=== PATIENT | female | born 1950 | race Two or more races ===

== ENCOUNTER 2019-07-07 12:00 | Inpatient (IN) | payer OTHER ==
[~2019-07-07] VITALS: Ht 175.3 cm; Wt 94.8 kg
[2019-07-07] MEDS ORDERED: SODIUM CHLORIDE 0.9% 500 ML IV ONE (12:24)
[2019-07-07] MEDS ORDERED: LEVOFLOXACIN 500MG PREMIX 100 ML IV ONE (12:30)
[2019-07-07 14:57] LABS: CLARITY URINE CLOUDY (CLEAR); COLOR URINE YELLOW (YELLOW); KETONES URINE NEGATIVE (NEGATIVE); LEUKOCYTE ESTERASE URINE 3+ (NEGATIVE); NITRITE URINE NEGATIVE (NEGATIVE); OCCULT BLOOD URINE 2+ (NEGATIVE); PROTEIN URINE TRACE (NEGATIVE); SPECIFIC GRAVITY URINE 1.013 (1.005-1.030); UROBILINOGEN URINE 0.2 E.U./dL (0.2-1.0)
[2019-07-07 14:59] LABS: CHLORIDE 105 mEq/L (98-107)
[2019-07-07 15:04] LABS: BASOPHILS % 0.3 % (0.0-2.0); D-DIMER 1.46 mg/L FEU (<0.50); EOSINOPHILS % 1.4 % (0.0-5.0); HEMATOCRIT. 40.2 % (36.0-48.0); HEMOGLOBIN. 13.3 g/dL (12.0-16.0); LYMPHOCYTES % 21.4 % (20.0-50.0); MEAN CORPUSCULAR HEMOGLOBIN 27.6 pg (28.0-32.0); MEAN CORPUSCULAR VOLUME 83.7 fL (81.0-99.0); MEAN PLATELET VOLUME 8.8 fl (7.4-10.4); MONOCYTES % 6.2 % (2.0-8.0); NEUTROPHILS % 70.7 % (40.0-76.0); PLATELET 279 x1000/uL (130-400); PROTHROMBIN TIME 10.6 sec (9.6-11.0); RED CELL DISTRIBUTION WIDTH 15.4 % (11.6-14.6)
[2019-07-07 15:06] LABS: C REACTIVE PROTEIN QUANT 7.7 mg/L (0.0-3.0)
[2019-07-07 15:08] LABS: CREATINE KINASE 60 IU/L (26-192)
[2019-07-07] MEDS ORDERED: CLONIDINE 0.1MG TABLET PO PRN (17:00)
[2019-07-07] MEDS ORDERED: ACETAMINOPHEN 325MG TABLET PO PRN ×2 (17:00)
[2019-07-07] MEDS ORDERED: ONDANSETRON HCL 4MG/2ML INJ IV PRN (17:00)
[2019-07-07] MEDS ORDERED: MAGNESIUM/ALUMINUM HYDROXIDE/SIMETHICONE 30ML UDC PO PRN (17:00)
[2019-07-07] MEDS ORDERED: DIPHENHYDRAMINE 50MG/ML VIAL IV PRN (17:00)
[2019-07-07] MEDS ORDERED: DEXTROSE 50% WATER 50ML SYRINGE IV PRN (17:00)
[2019-07-07] MEDS ORDERED: GUAIFENESIN 200MG/10ML SUGAR FREE UDC PO PRN (17:00)
[2019-07-07] MEDS: SODIUM CHLORIDE 0.9% 1,000 ML IV SCH (17:05)
[2019-07-07] MEDS: BLOOD SUGAR DIAGNOSTIC STRIP TEST SCH (17:05)
[2019-07-07] MEDS ORDERED: ENOXAPARIN 40MG/0.4ML SYR SUBCUT NR (17:15)
[2019-07-07] MEDS: INSULIN LISPRO 100 UNITS/ML SUBCUT SCH (17:52)
[2019-07-07 23:30] VITALS: BP 154/43
[2019-07-08] VITALS: BP 154/43
[2019-07-08] MEDS ORDERED: ROSU5TAB PO (01:11)
[2019-07-08 04:00] VITALS: BP 120/62
[2019-07-08] MEDS: BLOOD SUGAR DIAGNOSTIC STRIP TEST SCH ×4 (07:49→21:55)
[2019-07-08 08:00] VITALS: BP 120/58
[2019-07-08] MEDS: INSULIN LISPRO 100 UNITS/ML SUBCUT SCH ×4 (08:10→21:00)
[2019-07-08] MEDS: ENOXAPARIN 40MG/0.4ML SYR SUBCUT SCH (08:32)
[2019-07-08 10:22] LABS: BASOPHILS % 0.5 % (0.0-2.0); HEMOGLOBIN. 12.4 g/dL (12.0-16.0); LYMPHOCYTES % 27.6 % (20.0-50.0); MEAN CORPUSCULAR HEMOGLOBIN 27.8 pg (28.0-32.0); MEAN CORPUSCULAR VOLUME 83.2 fL (81.0-99.0); MEAN PLATELET VOLUME 8.9 fl (7.4-10.4); MONOCYTES % 7.1 % (2.0-8.0); NEUTROPHILS % 63.8 % (40.0-76.0); PLATELET 251 x1000/uL (130-400); RED BLOOD CELL COUNT 4.45 mill/uL (4.2-5.4); RED CELL DISTRIBUTION WIDTH 14.9 % (11.6-14.6)
[2019-07-08] MEDS: SODIUM CHLORIDE 0.9% 1,000 ML IV SCH (10:30)
[2019-07-08 10:40] LABS: CHLORIDE 110 mEq/L (98-107)
[2019-07-08 10:49] LABS: PHOSPHORUS 2.7 mg/dL (2.5-4.9)
[2019-07-08 12:00] VITALS: BP 118/66
[2019-07-08 16:00] VITALS: BP 118/71
[2019-07-08] MEDS ORDERED: LEVOFLOXACIN 500MG PREMIX 100 ML IV SCH ×2 (17:00→17:30)
[2019-07-08 20:00] VITALS: BP 131/71
[2019-07-09] VITALS: BP 140/77
[2019-07-09 04:32] VITALS: BP 138/81
[2019-07-09] MEDS: BLOOD SUGAR DIAGNOSTIC STRIP TEST SCH ×2 (06:56→12:59)
[2019-07-09 08:00] VITALS: BP 139/77
[2019-07-09] MEDS: INSULIN LISPRO 100 UNITS/ML SUBCUT SCH ×2 (08:10→12:50)
[2019-07-09] MEDS: ENOXAPARIN 40MG/0.4ML SYR SUBCUT SCH (08:19)
[2019-07-09 13:23] VITALS: BP 148/80
[2019-07-10] MEDS ORDERED: LEVOFLOXACIN 500MG TABLET PO SCH (11:00)
== END 2019-07-09 14:35 | disposition home or self-care (01) | DRG 871 ==
LOC: ER 12:26 → 7WST 13:05 → EDBEDREQTM 13:17 → EDBEDREQ 13:17 → ENRESERV 22:29 → 6WST 07-09 10:30
PROVIDERS: ADMIT Internal Medicine; ATTEND Internal Medicine
DX: A41.9 Sepsis, unspecified organism (principal); G93.41 Metabolic encephalopathy; N39.0 Urinary tract infection, site not specified; E11.9 Type 2 diabetes mellitus without complications; F03.90 Unspecified dementia, unspecified severity, without behavioral disturbance, psychotic disturbance, mood disturbance, and anxiety; Z20.828 Contact with and (suspected) exposure to other viral communicable diseases; Z88.1 Allergy status to other antibiotic agents; I95.9 Hypotension, unspecified
CPT/HCPCS: 36415; 71045; 80053; 81003; 82550; 82728; 82962; 83036; 83605; 83615; 83735; 83880; 84100; 84145; 84484; 85025; 85379; 85384; 86140; 87635; 87804; 93005; 96365; 99291; J1650; J1815; J1956; J7040; U0003-CS